=== PATIENT | female | born 1970 | race Caucasian/White ===

== ENCOUNTER 2022-02-06 05:23 | Emergency (ER) | payer OTHER ==
[~2022-02-06] VITALS: Ht 160 cm; Wt 96.2 kg
[2022-02-06 05:26] VITALS: BP_SYST 123
--- NOTE | 2022-02-06 05:35 | NUR ---
Patient to ER bed 05 for evaluation. Side rails up.
--- NOTE | 2022-02-06 05:40 | NUR ---
PT FROM HOME AFTER MECHANICAL FALL. PT STATES SHE WAS MAKING COFFEE, IT SPILLED AND SHE SLIPPED ON THE COFFEE. PT REPORTS HITTING KNEE AND HEAD WITH THE FALL. DENIES LOC AND KO. PT REPORTS PAIN IN THE BILATERAL THUMBS, LEFT ANKLE, RIGHT KNEE, AND FOREHEAD. PT TO BED BY WHEELCHAIR, BUT CAN AMBULATE.
--- NOTE | 2022-02-06 05:52 | NUR ---
Dr. Jeter at bedside with patient for evaluation.
--- NOTE | 2022-02-06 06:07 | NUR ---
Pt assisted to bathroom via wheelchair. Pt then ambulated back to the room with ease on her own.
--- NOTE | 2022-02-06 06:14 | NUR ---
X-ray being done at bedside.
[2022-02-06] MEDS ORDERED: ACETAMINOPHEN 500 MG TABLET PO ONE (06:15)
--- NOTE | 2022-02-06 06:44 | NUR ---
HARRISON wraps applied to left wrist and left ankle. Pt circulation in tact. Pulse WNL. PT states no discomfort and tightness with the harrison wrap. Soft splint applied to right wrist.
[2022-02-06 06:58] VITALS: BP_SYST 123
--- NOTE | 2022-02-06 06:59 | NUR ---
Patient given written and verbal discharge instructions and verbalizes understanding. ER Dr. Jeter discussed with patient the results and treatment provided. Patient in stable condition. ID arm band removed. Patient educated on pain management and to follow up with PMD. Pain Scale 0. Opportunity for questions provided and answered. Medication side effect fact sheet provided.
== END 2022-02-06 06:59 | disposition home or self-care (01) ==
LOC: SED 05:23
DX: S62.022A Displaced fracture of middle third of navicular [scaphoid] bone of left wrist, initial encounter for closed fracture (principal); S93.402A Sprain of unspecified ligament of left ankle, initial encounter; J45.909 Unspecified asthma, uncomplicated; E11.9 Type 2 diabetes mellitus without complications; W01.0XXA Fall on same level from slipping, tripping and stumbling without subsequent striking against object, initial encounter; Y93.89 Activity, other specified; Y92.89 Other specified places as the place of occurrence of the external cause; Y99.8 Other external cause status
CPT/HCPCS: 81025; 99284